=== PATIENT | female | born 1985 | race Hispanic/Latino ===

== ENCOUNTER 2018-05-15 08:32 | Emergency (ER) | payer SELFPAY ==
[2018-05-15 09:06] LABS: Bilirubin Negative (Negative); Blood, Urine Moderate (Negative); Clarity CLOUDY (Clear); Glucose, Urine (Dipstick) Negative (Negative); Leukocyte Small (Negative); Nitrite Negative (Negative); Protein, Urine (Dipstick) Negative (Neg-Trace); Specific Gravity, Urine 1.023 (1.002-1.036); pH, Urine 5.5 (5.0-9.0)
[2018-05-15 09:08] LABS: Bacteria/HPF 1+ HPF (None Seen); Hyaline Casts/LPF 4-6 HYALINE CAST LPF (0-3 Hyaline); Pathc Cast-AUWi Flag 0.72 (0-2.49)
[2018-05-15 09:12] LABS: Pregnancy Test - Urine (BHCG) Negative (Negative); Pregu Control Background? CLEAR/WHITE (CLR/WHITE); Pregu Control Bar Appear? YES (CONTROL BAR); Specific Gravity 1.023 (1.002-1.036)
[2018-05-15 09:13] LABS: #Basophils 0.1 thou/uL (0.0-0.2); #Eosinphils 0.2 thou/uL (0.0-0.7); #Lymphocytes 2.5 thou/uL (1.20-3.40); #Monocytes 0.4 thou/uL (0.11-0.59); #Neutrophils 5.6 thou/uL (1.40-6.50); %Basophils 0.7 % (0.0-1.0); %Eosinophils 2.1 % (0.0-10.0); %Lymphocytes 28.7 % (21.0-51.0); %Monocytes 4.9 % (0.0-10.0); %Neutrophils 63.6 % (42.0-75.0); Hemoglobin 13.1 g/dL (12.0-16.0); Mean Corpuscular HGB CONC 32.8 g/dL (32.0-36.0); Mean Corpuscular Hemoglobin 31.1 pg (27.0-31.0); Mean Corpuscular Volume 94.8 fL (78.0-98.0); Platelet Count 327 thou/uL (130-400); RBC Distribution Width 11.3 % (11.5-14.5); Red Blood Cell (RBC) Count 4.22 mill/uL (4.20-5.40); White Blood Cell (WBC) Count 8.8 thou/uL (4.8-10.8)
[2018-05-15 09:39] LABS: ALT (SGPT) 68 U/L (8-55); AST (SGOT) 30 U/L (5-34); Albumin 4.3 g/dL (3.5-5.0); Alkaline Phosphatase 67 U/L (40-150); Anion Gap 14 mmol/L (10-20); BUN (Urea Nitrogen) 10 mg/dL (7.0-18.7); Bilirubin, Total 0.5 mg/dL (0.2-1.2); Calc. Creatinine Clearance 0 mL/min (70-130); Calcium 9.4 mg/dL (7.8-10.44); Carbon Dioxide 20 mmol/L (22-29); Chloride 106 mmol/L (98-107); Estimated GFR-MDRD Greater than 90; Globulin 3.2 g/dL (2.4-3.5); Glucose 91 mg/dL (70-105); Lipase 13 U/L (8-78); Potassium 3.9 mmol/L (3.5-5.1); Protein, Total 7.5 g/dL (6.0-8.3); Sodium 136 mmol/L (136-145)
--- NOTE | 2018-05-15 11:04 | ULT ---
RIGHT UPPER QUADRANT ULTRASOUND: DATE: 05/15/18. HISTORY: Abdominal pain. FINDINGS: The liver demonstrates diffuse increased echogenicity suggesting diffuse fatty infiltration. The yennifer er is enlarged in craniocaudal dimensions measuring 20.2 cm. Visualized portions of the pancreas, visualized portions of the IVC, and right kidney demonstrate a n ormal sonographic appearance. The right kidney measures 11.3 cm in length. The gallbladder has a normal sonographic appearance, and no gallbladder calculi are seen. There is n o gallbladder wall thickening or pericholecystic fluid. The common duct measures 0.5 cm in diameter, which is within normal limits. Imaging in the midline and left upper quadrant as well as left lower quadrant in the focal region of patient's pain demonstrates no mass or cystic lesion. Shadowing fro m bowel gas is seen in these regions. IMPRESSION: 1. Hepatomegaly with diffuse fatty infiltration of the liver. 2. No gallbladder calculi are seen, and the common duct is normal in caliber. POS: [facility]
== END 2018-05-15 11:44 | disposition home or self-care (01) ==
LOC: ERS 08:32
DX: R10.11 Right upper quadrant pain (principal); R10.12 Left upper quadrant pain
CPT/HCPCS: 36415; 76705; 80053; 81003; 81015; 81025; 83690; 85025; 96372

== ENCOUNTER 2019-08-10 11:18 | Emergency (ER) | payer SELFPAY ==
[2019-08-10 11:52] LABS: Pregnancy Test - Urine (BHCG) Negative (Negative); Pregu Control Background? CLEAR/WHITE (CLR/WHITE); Pregu Control Bar Appear? YES (CONTROL BAR); Specific Gravity 1.017 (1.002-1.036)
[2019-08-10 11:54] LABS: Bilirubin Negative (Negative); Blood, Urine 2+ (Negative); Clarity Turbid (Clear); Glucose, Urine (Dipstick) Normal (Negative); Leukocyte 250 Leu/uL (Negative); Nitrite Negative (Negative); Protein, Urine (Dipstick) Negative (Neg-Trace)
[2019-08-10 11:55] LABS: Bacteria/HPF 1+ HPF (None Seen)
[2019-08-10 11:58] LABS: #Eosinphils 0.2 thou/uL (0.0-0.7); #Lymphocytes 2.1 thou/uL (1.20-3.40); #Monocytes 0.4 thou/uL (0.11-0.59); #Neutrophils 5.8 thou/uL (1.40-6.50); %Basophils 0.5 % (0.0-1.0); %Monocytes 4.4 % (0.0-10.0); %Neutrophils 68.2 % (42.0-75.0); Hemoglobin 13.5 g/dL (12.0-16.0); Mean Corpuscular HGB CONC 32.9 g/dL (32.0-36.0); Mean Corpuscular Hemoglobin 30.5 pg (27.0-31.0); Mean Corpuscular Volume 92.7 fL (78.0-98.0); Mean Platelet Volume 8.2 fL (7.4-10.4); Platelet Count 329 thou/uL (130-400); RBC Distribution Width 10.8 % (11.5-14.5); Red Blood Cell (RBC) Count 4.43 mill/uL (4.20-5.40); White Blood Cell (WBC) Count 8.5 thou/uL (4.8-10.8)
[2019-08-10 12:16] LABS: ALT (SGPT) 36 U/L (8-55); AST (SGOT) 18 U/L (5-34); Albumin 4.6 g/dL (3.5-5.0); Alkaline Phosphatase 69 U/L (40-110); Anion Gap 10 mmol/L (10-20); BUN (Urea Nitrogen) 9 mg/dL (7.0-18.7); Bilirubin, Total 0.4 mg/dL (0.2-1.2); Calc. Creatinine Clearance 0 mL/min (70-130); Calcium 9.8 mg/dL (7.8-10.44); Carbon Dioxide 31 mmol/L (22-29); Chloride 103 mmol/L (98-107); Estimated GFR-MDRD Greater than 90; Globulin 2.9 g/dL (2.4-3.5); Glucose 101 mg/dL (70-105); Lipase 20 U/L (8-78); Protein, Total 7.5 g/dL (6.0-8.3); Sodium 140 mmol/L (136-145)
== END 2019-08-10 13:35 | disposition home or self-care (01) ==
LOC: ERS 11:18
DX: K46.9 Unspecified abdominal hernia without obstruction or gangrene (principal)
CPT/HCPCS: 36415; 80053; 81003; 81015; 81025; 83690; 84484; 85025; 93005

== ENCOUNTER 2019-12-31 10:28 | Emergency (ER) | payer BC ==
[2019-12-31 11:40] LABS: #Eosinphils 0.1 thou/uL (0.0-0.7); #Lymphocytes 2.2 thou/uL (1.20-3.40); #Monocytes 0.5 thou/uL (0.11-0.59); #Neutrophils 5.3 thou/uL (1.40-6.50); %Basophils 0.3 % (0.0-1.0); %Eosinophils 1.3 % (0.0-10.0); %Lymphocytes 27.6 % (21.0-51.0); %Monocytes 5.5 % (0.0-10.0); %Neutrophils 65.3 % (42.0-75.0); Hemoglobin 12.5 g/dL (12.0-16.0); Mean Corpuscular HGB CONC 34.2 g/dL (32.0-36.0); Mean Corpuscular Hemoglobin 32.3 pg (27.0-31.0); Mean Corpuscular Volume 94.4 fL (78.0-98.0); Mean Platelet Volume 8.3 fL (7.4-10.4); Platelet Count 291 thou/uL (130-400); RBC Distribution Width 11.1 % (11.5-14.5); Red Blood Cell (RBC) Count 3.87 mill/uL (4.20-5.40); White Blood Cell (WBC) Count 8.1 thou/uL (4.8-10.8)
--- NOTE | 2019-12-31 12:13 | ULT ---
PELVIC ULTRASOUND WITH PAIZ SCALE AND COLOR FLOW AND SPECTRAL DOPPLER IMAGING: HISTORY: A 34-year-old patient with abdominal pain and vaginal bleeding. FINDINGS: The uterus measures 15.3 x 10.8 x 8.6 cm with a single intrauterine gestation. The crown-rump length measures 4.31 cm and the gestational sac diameter measures 6.25 cm. Measurements correspond to an e stimated gestational age of 11 weeks 6 days and MICHAEL at 07/15/2020. The heart rate measures 169 b.p.m. Ovaries are not visualized. There are multiple small subchorionic hemorrhages noted. IMPRESSION: 1. Single live intrauterine of 11 weeks 6 days estimated gestational age with estimated date of delivery at 07/15/2020. 2. Multiple small subchorionic hemorrhages. POS: [facility]
[2019-12-31 13:12] LABS: Clarity Hazy (Clear)
[2019-12-31 13:18] LABS: Bacteria/HPF 2+ HPF (None Seen); RBC/HPF Greater than 50 HPF (0-3); WBC/HPF 21-50 HPF (0-3)
== END 2019-12-31 13:35 | disposition home or self-care (01) ==
LOC: ERS 10:28
DX: O20.0 Threatened abortion (principal); Z3A.12 12 weeks gestation of pregnancy
CPT/HCPCS: 36415; 76856; 81003; 84702; 85025; 86850; 86900; 86901; 93976

== ENCOUNTER 2020-03-13 10:03 | Emergency (ER) | payer BC, MEDICAID, OTHER ==
[2020-03-14 12:53] LABS: SARS-CoV-2 MS2 Positive; SARS-CoV-2 N Gene Positive; SARS-CoV-2 S Gene Positive; SARS-CoV-2 orf1ab Positive
== END 2020-03-13 10:17 | disposition home or self-care (01) ==
LOC: ERS 10:03
DX: U07.1 COVID-19 (principal)
CPT/HCPCS: 87635; 99284; U0003

== ENCOUNTER 2020-09-28 08:57 | Emergency (ER) | payer BC, OTHER ==
[2020-09-28 09:42] LABS: #Basophils 0.1 thou/uL (0.0-0.2); #Eosinphils 0.2 thou/uL (0.0-0.7); #Lymphocytes 1.6 thou/uL (1.20-3.40); #Monocytes 0.3 thou/uL (0.11-0.59); #Neutrophils 3.7 thou/uL (1.40-6.50); %Eosinophils 2.6 % (0.0-10.0); %Lymphocytes 28.1 % (21.0-51.0); %Monocytes 5.1 % (0.0-10.0); %Neutrophils 63.2 % (42.0-75.0); Hemoglobin 11.1 g/dL (12.0-16.0); Mean Corpuscular HGB CONC 32.2 g/dL (32.0-36.0); Mean Corpuscular Volume 83.7 fL (78.0-98.0); Mean Platelet Volume 8.4 fL (7.4-10.4); Platelet Count 340 thou/uL (130-400); RBC Distribution Width 14.1 % (11.5-14.5); Red Blood Cell (RBC) Count 4.12 mill/uL (4.20-5.40); White Blood Cell (WBC) Count 5.8 thou/uL (4.8-10.8)
[2020-09-28 09:54] LABS: BHCG - Serum Negative (NEGATIVE); Pregs Control Background? CLEAR/WHITE (CLR/WHITE); Pregs Control Bar Appear? YES (CONTROL BAR)
[2020-09-28] MEDS ORDERED: Ketorolac Tromethamine 30 MG/ML VIAL ONE (10:44)
== END 2020-09-28 11:07 | disposition home or self-care (01) ==
LOC: ERS 08:57
DX: N93.8 Other specified abnormal uterine and vaginal bleeding (principal)
CPT/HCPCS: 36415; 84703; 85025; 86850; 86900; 86901; 96372; 99284; J1885

== ENCOUNTER 2023-10-25 08:33 | Emergency (ER) | payer OTHER, SELFPAY ==
[2023-10-25] MEDS ORDERED: Ibuprofen 200 MG TAB ONE (09:02)
[2023-10-25] MEDS ORDERED: Dexamethasone 4 mg/ml Vial ONE (09:26)
[2023-10-25] MEDS ORDERED: Ondansetron PF 4 MG/2 ML Vial ONE (09:27)
[2023-10-25 10:33] LABS: Influenza A by NAA Not Detected (NotDetected); Influenza B by NAA Not Detected (NotDetected); SARS-CoV-2 NAA Rapid Test Not Detected (NotDetected)
== END 2023-10-25 11:35 | disposition home or self-care (01) ==
LOC: ERS 08:33
DX: J02.0 Streptococcal pharyngitis (principal)
CPT/HCPCS: 71045; 87430; 93005; 96374; 96375; J1100; J2405